=== PATIENT | male | born 1965 ===

== ENCOUNTER 2021-05-30 15:26 | Emergency (ER) | payer MEDICAID ==
[~2021-05-30] VITALS: Ht 177.8 cm; Wt 160.0 kg
[~2021-05-30 15:26] MED LIST: atropine 0.1mg/ml 10ml syringe ONE; epiNEPHrine 0.1mg/ml 10ml syringe ONE; sod chloride 0.9% 10ml flush syringe IV ONE
== END 2021-05-30 17:08 ==
LOC: EDBD 15:26 → ER 15:26
DX: T59.7X1A Toxic effect of carbon dioxide, accidental (unintentional), initial encounter (principal); T14.91XA Suicide attempt, initial encounter; Y92.89 Other specified places as the place of occurrence of the external cause
CPT/HCPCS: 92950; 99285; J0171; J0461